=== PATIENT | male | born 1980 | race American Indian/Alaskan Native ===

== ENCOUNTER 2019-07-27 01:04 | Emergency (ER) | payer SELFPAY ==
[2019-07-27] MEDS ORDERED: BUPIVACAINE/PF (0.5%) 5 MG/1 ML 10 ML VIAL INFILTRATI ONE (01:41)
[2019-07-27] MEDS ORDERED: LIDOCAINE-MPF (1%) 10 MG/1 ML VIAL 5 ML INFILTRATI ONE (01:41)
[2019-07-27] MEDS ORDERED: HYDROcodone/ACETAMINOPHEN 7.5-325MG TAB PO ONE (01:41)
--- NOTE | 2019-07-27 02:06 | Emergency Department Report ---
- General Chief Complaint: Wound/Laceration Stated Complaint: LAC TO RIGHT HAND Time Seen by Provider: 07/27/19 01:32 Source: patient Mode of arrival: Ambulatory Limitations: No Limitations - History of Present Illness Initial Comments: Patient is a 39-year-old male presents emergency room complaints of a laceration to the right middle finger that occurred around 12 PM today. He states that he accidentally broke a picture frame and got cut with glass when the frame was falling down. He is able to move the fingers. He denies any numbness or weakness. He is unsure of his last tetanus immunization. He has a past medical history of asthma and hypertension. He denies any allergies to medications. - Related Data Home Medications Medication Instructions Recorded Confirmed Last Taken ALBUTEROL NEB's [Proventil 0.083%] 2.5 mg IH TID PRN 11/01/13 11/01/13 11/01/13 20:00 Albuterol Sulfate [Ventolin HFA] 2 puff IH Q4H PRN 11/01/13 11/01/13 11/01/13 20:00 Allergies Allergy/AdvReac Type Severity Reaction Status Date / Time No Known Allergies Allergy Verified 11/01/13 21:04 ED Review of Systems ROS: Stated complaint: LAC TO RIGHT HAND Other details as noted in HPI Comment: All other systems reviewed and negative ED Past Medical Hx - Past Medical History Hx Hypertension: Yes Hx Asthma: Yes - Surgical History Additional Surgical History: hemorrhoidectomy - Social History Smoking Status: Never Smoker Substance Use Type: Alcohol, Marijuana - Medications Home Medications: Home Medications Medication Instructions Recorded Confirmed Last Taken Type ALBUTEROL NEB's [Proventil 0.083%] 2.5 mg IH TID PRN 11/01/13 11/01/13 11/01/13 20:00 History Albuterol Sulfate [Ventolin HFA] 2 puff IH Q4H PRN 11/01/13 11/01/13 11/01/13 20:00 History ED Physical Exam - General Limitations: No Limitations General appearance: alert, in no apparent distress - Head Head exam: Present: atraumatic, normocephalic - Eye Eye exam: Present: normal appearance - ENT ENT exam: Present: mucous membranes moist - Extremities Exam Extremities exam: Present: other (3 cm irregularly shaped laceration present to the right middle finger on the palmar surface, no active bleeding, no foreign body visualized or palpable, no tendon/muscle involvement, FROM of the right fingers and hand, no deformity, neurovascularly intact) - Neurological Exam Neurological exam: Present: alert, oriented X3 - Psychiatric Psychiatric exam: Present: normal affect, normal mood - Skin Skin exam: Present: warm, dry ED Course Vital Signs 07/27/19 07/27/19 07/27/19 01:10 01:51 02:51 Temperature 97.8 F Pulse Rate 65 Respiratory 18 16 18 Rate Blood Pressure 177/93 Blood Pressure [Left] O2 Sat by Pulse 98 Oximetry 07/27/19 03:05 Temperature Pulse Rate 63 Respiratory 18 Rate Blood Pressure Blood Pressure 136/99 [Left] O2 Sat by Pulse 99 Oximetry - Laceration /Wound Repair Right Palm Finger Wound Location: upper extremity (palmar surface of the right middle finger) Wound Length (cm): 3 Wound's Depth, Shape: superficial Wound Explored: clean Irrigated w/ Saline (ccs): 500 Betadine Prep?: Yes Anesthesia: 1% Lidocaine Volume Anesthetic (ccs): 8 (1% lidocaine and 0.5% bupvicaine (50/50 mix)) Wound Debrided: moderate Wound Repaired With: sutures Suture Size/Type: 4:0 Number of Sutures: 4 Layer Closure?: No Sterile Dressing Applied?: Yes Progress: Wound irrigated with saline and thoroughly scrubbed with Betadine, no foreign body visualized, no muscle tendon involvement, digital block performed with 8 cc of 1% lidocaine and 0.5% bupivacaine, 4 cc of 1% lidocaine without epinephrine and 4 cc of 0.5% bupivacaine used for total of 8 cc, Betadine prep again, sterile drapes applied, sterile gloves worn, 4 sutures placed with 4-0 Prolene, patient tolerated well, bleeding controlled, no complications, sterile dressing applied ED Medical Decision Making - Medical Decision Making Patient is a 39-year-old male presents emergency room complaints of a laceration to the right middle finger that occurred around 12 PM today. He states that he accidentally broke a picture frame and got cut with glass when the frame was falling down. He is able to move the fingers. He denies any numbness or weakness. He is unsure of his last tetanus immunization. He has a past medical history of asthma and hypertension. He denies any allergies to medications. Initial vitals with elevated blood pressure which improved upon repeat. On exam: 3 cm irregularly shaped laceration present to the right middle finger on the palmar surface, no active bleeding, no foreign body visualized or palpable, no tendon/muscle involvement, FROM of the right fingers and hand, no deformity, neurovascularly intact. Patient given pain medication as he did not drive to the emergency department. Wound irrigated with saline and thoroughly scrubbed with Betadine and repaired per procedure note. Patient given tetanus immunization. advised pt Please keep area clean, dry, covered. May wash with soap and water and immediately dry. No hot tub, no pool, no soaking in water. Sutures need to be removed in 7 to 10 days. Follow-up with a primary care doctor for reexamination. Return to the emergency room for any new or worsening symptoms. Critical care attestation.: If time is entered above; I have spent that time in minutes in the direct care of this critically ill patient, excluding procedure time. ED Disposition Clinical Impression: Laceration of right middle finger Qualifiers: Encounter type: initial encounter Damage to nail status: without damage Foreign body presence: without foreign body Qualified Code(s): S61.212A - Laceration without foreign body of right middle finger without damage to nail, initial encounter Disposition: DC- TO HOME OR SELFCARE Is pt being admited?: No Does the pt Need Aspirin: No Condition: Stable Instructions: Suture Care (ED), Laceration (ED) Additional Instructions: Please keep area clean, dry, covered. May wash with soap and water and immediately dry. No hot tub, no pool, no soaking in water. Sutures need to be removed in 7 to 10 days. Follow-up with a primary care doctor for reexamination. Return to the emergency room for any new or worsening symptoms. Referrals: ELVIRA LEE MD [Primary Care Provider] - 3-5 Days Time of Disposition: 02:50 Print Language: CZECH
[2019-07-27] MEDS ORDERED: NEOMY 3.5 MG/BACIT 400 UNITS/POLY B 5000 UNITS/GM OINT PACKET TP ONE (02:20)
[2019-07-27] MEDS ORDERED: HYDROGEN PEROXIDE 118 ML SOLUTION ONE (02:20)
[2019-07-27] MEDS ORDERED: TETANUS,DIPH,PERTUSS(ACELL) VACCINE 0.5 ML SYRINGE IM ONE (02:46)
[2019-07-27 03:08] VITALS: BP 136/99
== END 2019-07-27 03:05 | disposition home or self-care (01) ==
LOC: ED 01:04
PROC: 0HQFXZZ Repair Right Hand Skin, External Approach (ICD-10-PCS; principal; 2019-07-27)
DX: S61.212A Laceration without foreign body of right middle finger without damage to nail, initial encounter (principal); I10 Essential (primary) hypertension; J45.909 Unspecified asthma, uncomplicated; F12.10 Cannabis abuse, uncomplicated; Z79.899 Other long term (current) drug therapy; W25.XXXA Contact with sharp glass, initial encounter; Y93.89 Activity, other specified; Y92.89 Other specified places as the place of occurrence of the external cause; Y99.8 Other external cause status
CPT/HCPCS: 90471; 90715; 99282; A6250

== ENCOUNTER 2019-08-11 02:53 | Emergency (ER) | payer SELFPAY ==
--- NOTE | 2019-08-11 05:00 | Emergency Department Report ---
ED General Adult HPI - General Chief complaint: Laceration/Recheck/Suture Stated complaint: REMOVAL STITCHES Source: patient Mode of arrival: Ambulatory Limitations: No Limitations - History of Present Illness Initial comments: Patient is a 39-year-old -[place] male with no past medical history who presents to the ED for suture removal from recently sutured distal right middle finger laceration after a piece of glass cut his right middle finger 2 weeks ago. Patient states that he was initially evaluated and treated in this ED and had sutures placed to close the wound. Patient states that he has been taking [id number] medications as needed for pain. Patient complains of worsening distal right middle finger wound from the laceration and states that the wound has partially opened. Patient denies numbness and tingling or weakness of right hand, nausea, vomiting, fever, chills, dizziness or headache. -: Sudden, week(s) (2) Location: upper extremity (Distal right middle finger) Radiation: non-radiation Severity scale (0 -10): 5 Quality: aching, sharp Consistency: constant Improves with: none Worsens with: none Associated Symptoms: denies other symptoms. denies: confusion, chest pain, cough, diaphoresis, fever/chills, headaches, loss of appetite, malaise, nausea/vomiting, rash, seizure, shortness of breath, syncope, weakness Treatments Prior to Arrival: NSAID - Related Data Home Medications Medication Instructions Recorded Confirmed Last Taken ALBUTEROL NEB's [Proventil 0.083%] 2.5 mg IH TID PRN 11/01/13 11/01/13 11/01/13 20:00 Albuterol Sulfate [Ventolin HFA] 2 puff IH Q4H PRN 11/01/13 11/01/13 11/01/13 20:00 Previous Rx's Medication Instructions Recorded Last Taken Type Ibuprofen [Motrin] 600 mg PO Q8H PRN #20 tablet 08/11/19 Unknown Rx cephALEXin [Keflex] 500 mg PO Q8HR #30 cap 08/11/19 Unknown Rx Allergies Allergy/AdvReac Type Severity Reaction Status Date / Time No Known Allergies Allergy Verified 11/01/13 21:04 ED Review of Systems ROS: Stated complaint: REMOVAL STITCHES Other details as noted in HPI Constitutional: denies: chills, fever Eyes: denies: eye pain, eye discharge, vision change ENT: denies: ear pain, throat pain Respiratory: denies: cough, shortness of breath, wheezing Cardiovascular: denies: chest pain, palpitations Endocrine: no symptoms reported Gastrointestinal: denies: abdominal pain, nausea, diarrhea Genitourinary: denies: urgency, dysuria Musculoskeletal: arthralgia (Distal right middle finger pain from a dehisced laceration wound). denies: back pain, joint swelling Skin: other (Dehisced laceration wound on distal right middle finger). denies: rash, lesions Neurological: denies: headache, weakness, paresthesias Psychiatric: denies: anxiety, depression Hematological/Lymphatic: denies: easy bleeding, easy bruising ED Past Medical Hx - Past Medical History Previous Medical History?: Yes Hx Hypertension: Yes Hx Asthma: Yes - Surgical History Past Surgical History?: Yes Additional Surgical History: hemorrhoidectomy - Social History Smoking Status: Never Smoker Substance Use Type: Marijuana - Medications Home Medications: Home Medications Medication Instructions Recorded Confirmed Last Taken Type ALBUTEROL NEB's [Proventil 0.083%] 2.5 mg IH TID PRN 11/01/13 11/01/13 11/01/13 20:00 History Albuterol Sulfate [Ventolin HFA] 2 puff IH Q4H PRN 11/01/13 11/01/13 11/01/13 20:00 History Ibuprofen [Motrin] 600 mg PO Q8H PRN #20 tablet 08/11/19 Unknown Rx cephALEXin [Keflex] 500 mg PO Q8HR #30 cap 08/11/19 Unknown Rx ED Physical Exam - General Limitations: No Limitations General appearance: alert, in no apparent distress - Head Head exam: Present: atraumatic, normocephalic, normal inspection - Eye Eye exam: Present: normal appearance, PERRL, EOMI Pupils: Present: normal accommodation - ENT ENT exam: Present: normal exam, normal orophraynx, mucous membranes moist, TM's normal bilaterally, normal external ear exam - Neck Neck exam: Present: normal inspection, full ROM - Respiratory Respiratory exam: Present: normal lung sounds bilaterally. Absent: respiratory distress, wheezes, rales, rhonchi, chest wall tenderness, accessory muscle use, decreased breath sounds, prolonged expiratory - Cardiovascular Cardiovascular Exam: Present: regular rate, normal rhythm, normal heart sounds. Absent: systolic murmur, diastolic murmur, rubs, gallop - GI/Abdominal GI/Abdominal exam: Present: soft, normal bowel sounds. Absent: distended, tenderness, guarding, hyperactive bowel sounds - Extremities Exam Extremities exam: Present: normal inspection, full ROM, tenderness (Palpable distal right middle finger due to an open wound from her recent laceration repair with sutures in place), normal capillary refill - Back Exam Back exam: Present: normal inspection, full ROM. Absent: tenderness, CVA tenderness (R), muscle spasm, paraspinal tenderness - Neurological Exam Neurological exam: Present: alert, oriented X3, CN II-XII intact, normal gait - Psychiatric Psychiatric exam: Present: normal affect, normal mood - Skin Skin exam: Present: warm, dry, intact, normal color, other (Open laceration wound on distal right middle finger on palmar side with sutures in place and palpable tenderness). Absent: rash ED Course Vital Signs 08/11/19 02:56 Temperature 98.6 F Pulse Rate 80 Respiratory 18 Rate Blood Pressure 142/93 O2 Sat by Pulse 98 Oximetry ED Medical Decision Making - Medical Decision Making This is a 39-year-old -[place] male with no past medical history who presents to the ED for suture removal from recently sutured distal right middle finger laceration after a piece of glass cut his right middle finger 2 weeks ago. Patient states that he was initially evaluated and treated in this ED and had sutures placed to close the wound. Patient states that he has been taking [id number]-okpuixo medications as needed for pain. Patient complains of worsening distal right middle finger wound from the laceration and states that the wound has partially opened. In the ED, patient is alert and oriented x3 and is not in distress. Physical exam reveals palpable tenderness of the distal right middle finger laceration wound. No discharge appreciated on exam. The sutures were removed successfully and the patient was discharged home on prophylactic antibiotics and advised to follow-up with his primary care physician in 7 to 10 days for reevaluation or return to the ED immediately if symptoms get worse. - Differential Diagnosis Infected wound; Laceration; Wound dehiscence Critical care attestation.: If time is entered above; I have spent that time in minutes in the direct care of this critically ill patient, excluding procedure time. ED Disposition Clinical Impression: Encounter for removal of sutures Infected puncture wound of finger Qualifiers: Encounter type: subsequent encounter Qualified Code(s): S61.239D - Puncture wound without foreign body of unspecified finger without damage to nail, subsequent encounter; L08.9 - Local infection of the skin and subcutaneous tissue, unspecified Disposition: DC-01 TO HOME OR SELFCARE Is pt being admited?: No Does the pt Need Aspirin: No Condition: Stable Instructions: Wound Infection (ED), Puncture Wound (ED) Additional Instructions: Take medication with food, drink plenty of fluids and follow-up with your primary care physician in 7 to 10 days for reevaluation. Return to the ED immediately if symptoms get worse. Prescriptions: cephALEXin [Keflex] 500 mg PO Q8HR #30 cap Ibuprofen [Motrin] 600 mg PO Q8H PRN #20 tablet PRN Reason: Pain Referrals: [facility] [Provider Group] - 7-10 days Time of Disposition: 05:04 Print Language: SERBIAN
[2019-08-13 12:23] VITALS: BP 168/92
== END 2019-08-11 05:19 | disposition home or self-care (01) ==
LOC: ED 02:53
DX: S61.232D Puncture wound without foreign body of right middle finger without damage to nail, subsequent encounter (principal); I10 Essential (primary) hypertension; J45.909 Unspecified asthma, uncomplicated; F12.10 Cannabis abuse, uncomplicated; Z48.02 Encounter for removal of sutures; Z90.89 Acquired absence of other organs; Z79.899 Other long term (current) drug therapy; X58.XXXD Exposure to other specified factors, subsequent encounter
CPT/HCPCS: 99282

== ENCOUNTER 2021-01-13 04:43 | Emergency (ER) | payer SELFPAY ==
--- NOTE | 2021-01-13 04:44 | Emergency Department Report ---
ED Male HPI - General Stated complaint: POSSIBLE STD Time Seen by Provider: 01/13/21 04:44 - History of Present Illness Initial comments: Patient presents for possible STD. Patient noticed a lesion on the shaft of his penis over the last day. He tried to rub it off. It started to look a little clear. It was painless. He has had no discharge. He has no testicular pain. There has been no change in urinary habits. He was concern for syphilis. He has had syphilis before. He had what sounds like a primary syphilis. He noticed a rash on his scrotum. He was treated with a single dose of penicillin IM. Patient states that he does have HIV. He is concerned because of his history and came here for evaluation. There has been no fevers or chills. Is no cough or congestion. There is no vomiting or diarrhea. No abdominal pain or back pain. He has had no known exposure. He does state that he is out of his HIV medication and would like a new prescription. He is unaware of his current medication regimen. - Related Data Home Medications Medication Instructions Recorded Confirmed Last Taken ALBUTEROL NEB's [Proventil 0.083%] 2.5 mg IH TID PRN 11/01/13 11/01/13 11/01/13 20:00 Albuterol Sulfate [Ventolin HFA] 2 puff IH Q4H PRN 11/01/13 11/01/13 11/01/13 20:00 Previous Rx's Medication Instructions Recorded Last Taken Type Ibuprofen [Motrin] 600 mg PO Q8H PRN #20 tablet 08/11/19 Unknown Rx Allergies Allergy/AdvReac Type Severity Reaction Status Date / Time No Known Allergies Allergy Verified 11/01/13 21:04 ED Review of Systems ROS: Stated complaint: POSSIBLE STD Other details as noted in HPI Comment: All other systems reviewed and negative Constitutional: denies: fever Eyes: denies: eye pain ENT: denies: throat pain Respiratory: denies: cough Cardiovascular: denies: chest pain Endocrine: denies: unexplained weight loss Gastrointestinal: denies: abdominal pain Genitourinary: as per HPI Musculoskeletal: denies: back pain Skin: as per HPI Hematological/Lymphatic: denies: easy bruising ED Past Medical Hx - Past Medical History Hx Hypertension: Yes Hx Asthma: Yes Hx HIV: Yes - Surgical History Additional Surgical History: hemorrhoidectomy - Social History Smoking Status: Never Smoker Substance Use Type: Alcohol, Marijuana - Medications Home Medications: Home Medications Medication Instructions Recorded Confirmed Last Taken Type ALBUTEROL NEB's [Proventil 0.083%] 2.5 mg IH TID PRN 11/01/13 11/01/13 11/01/13 20:00 History Albuterol Sulfate [Ventolin HFA] 2 puff IH Q4H PRN 11/01/13 11/01/13 11/01/13 20:00 History Ibuprofen [Motrin] 600 mg PO Q8H PRN #20 tablet 08/11/19 Unknown Rx ED Physical Exam - General Limitations: No Limitations, Other (Pulse ox was noted to normal.) General appearance: alert, in no apparent distress - Head Head exam: Present: atraumatic, normocephalic, normal inspection - Eye Eye exam: Present: normal appearance, EOMI. Absent: scleral icterus - ENT ENT exam: Present: normal exam, normal external ear exam - Neck Neck exam: Present: normal inspection. Absent: meningismus - Respiratory Respiratory exam: Present: normal lung sounds bilaterally. Absent: respiratory distress - Cardiovascular Cardiovascular Exam: Present: regular rate, normal rhythm - GI/Abdominal GI/Abdominal exam: Present: soft. Absent: tenderness - exam: Present: other (Small 3 mm circular lesion noted to the dorsum of the shaft of the penis proximally. This is nontender.). Absent: scrotal swelling - Extremities Exam Extremities exam: Present: normal capillary refill - Back Exam Back exam: Absent: CVA tenderness (R), CVA tenderness (L) - Neurological Exam Neurological exam: Present: alert, oriented X3, normal gait. Absent: motor sensory deficit - Psychiatric Psychiatric exam: Present: normal affect, normal mood - Skin Skin exam: Present: warm, dry ED Course - Reevaluation(s) Reevaluation #1: 01/13/21 04:58 Labs were ordered. Patient was treated empirically. Old records reviewed. ED Medical Decision Making - Medical Decision Making Patient presents with a penile rash. Given his HIV history, prior history of syphilis, and lifestyle, we have chosen to empirically treat for syphilis pending his test result. He was given a single dose of penicillin here. We did test for other sexually transmitted infections. These were not treated empirically. We will have him follow-up for further evaluation and test results. He was given a referral physician if he cannot follow with his regular physician. He certainly does not appear to have any evidence of orchitis. There is no penile discharge. He does not appear to be septic or toxic. The rash does not appear to be chancroid in nature. There does not appear to be any pain associate with this. I do not believe this represents herpes. Critical Care Time: No Critical care attestation.: If time is entered above; I have spent that time in minutes in the direct care of this critically ill patient, excluding procedure time. ED Disposition Clinical Impression: Penile lesion Disposition: HOME / SELF CARE / HOMELESS Is pt being admited?: No Condition: Stable Instructions: Syphilis, Syphilis Test Additional Instructions: Follow-up with your regular physician for test results. Drink plenty of fluids. Return for problems. Continue home medication. Referrals: PRIMARY MD CATHERINE [Referring] - 3-5 Days CHRISTIAN ROMERO MD [Staff Physician] - 3-5 Days
[2021-01-13] MEDS ORDERED: PENICILLIN G BENZATHINE 1.2 MILLION UNIT/2 ML INJ IM ONE (04:54)
[2021-01-13 05:06] VITALS: BP 128/88
== END 2021-01-13 05:52 | disposition home or self-care (01) ==
LOC: ED 04:43
DX: N48.89 Other specified disorders of penis (principal); I10 Essential (primary) hypertension; J45.909 Unspecified asthma, uncomplicated; F12.90 Cannabis use, unspecified, uncomplicated; Z72.89 Other problems related to lifestyle; Z91.010 Allergy to peanuts; Z79.899 Other long term (current) drug therapy
CPT/HCPCS: 96372; 99282; J0561

== ENCOUNTER 2021-07-06 18:02 | Emergency (ER) | payer SELFPAY ==
[2021-07-06] MEDS ORDERED: IPRATROPIUM/ALBUTEROL SULFATE 3 ML AMPUL.NEB IH STA (18:34)
[2021-07-06] MEDS ORDERED: methylPREDNISolone Sod Succinate 125 MG/2 ML INJ IV ONE (18:34)
--- NOTE | 2021-07-06 18:40 | Emergency Department Report ---
ED General Adult HPI - General Chief complaint: Adult Asthma Stated complaint: ASTHMA Time Seen by Provider: 07/06/21 18:29 Source: patient Mode of arrival: Ambulatory Limitations: No Limitations - History of Present Illness Initial comments: Patient presents with complaints of SOB @ rest and on exertion. Denies PND, orthopnea, chest pain, palpitations, diaphoresis, leg swelling, pain in his calves, recent travel, immobilization, surgery, hospitalization, sex HRT use. Reports rhinorrhea, cough x 1 day. Has a hx of asthma Severity scale (0 -10): 0 - Related Data Home Medications Medication Instructions Recorded Confirmed Last Taken ALBUTEROL NEB's [Proventil 0.083%] 2.5 mg IH TID PRN 11/01/13 11/01/13 11/01/13 20:00 Albuterol Sulfate [Ventolin HFA] 2 puff IH Q4H PRN 11/01/13 11/01/13 11/01/13 20:00 Previous Rx's Medication Instructions Recorded Last Taken Type Ibuprofen [Motrin] 600 mg PO Q8H PRN #20 tablet 08/11/19 Unknown Rx ALBUTEROL NEB's [Proventil 0.083% 3 ml IH Q6H PRN 30 Days #120 vial 07/06/21 Unknown Rx NEBS] Albuterol Sulfate [Proventil Hfa] 2 puff IH Q6H PRN 30 Days #1 inh 07/06/21 Unknown Rx predniSONE [Deltasone] 2 tab PO QDAY 5 Days #10 tab 07/06/21 Unknown Rx Allergies Allergy/AdvReac Type Severity Reaction Status Date / Time peanuts AdvReac Rash Uncoded 01/13/21 05:00 ED Review of Systems ROS: Stated complaint: ASTHMA Other details as noted in HPI Comment: All other systems reviewed and negative Constitutional: denies: chills, fever ED Past Medical Hx - Past Medical History Previous Medical History?: Yes Hx Hypertension: Yes Hx Asthma: Yes Hx HIV: Yes Additional medical history: Syphyllis - Surgical History Additional Surgical History: hemorrhoidectomy - Social History Smoking Status: Never Smoker Substance Use Type: Alcohol, Marijuana - Medications Home Medications: Home Medications Medication Instructions Recorded Confirmed Last Taken Type ALBUTEROL NEB's [Proventil 0.083%] 2.5 mg IH TID PRN 11/01/13 11/01/13 11/01/13 20:00 History Albuterol Sulfate [Ventolin HFA] 2 puff IH Q4H PRN 11/01/13 11/01/13 11/01/13 20:00 History Ibuprofen [Motrin] 600 mg PO Q8H PRN #20 tablet 08/11/19 Unknown Rx ALBUTEROL NEB's [Proventil 0.083% 3 ml IH Q6H PRN 30 Days #120 vial 07/06/21 Unknown Rx NEBS] Albuterol Sulfate [Proventil Hfa] 2 puff IH Q6H PRN 30 Days #1 inh 07/06/21 Unknown Rx predniSONE [Deltasone] 2 tab PO QDAY 5 Days #10 tab 07/06/21 Unknown Rx ED Physical Exam - General Limitations: No Limitations General appearance: alert, in no apparent distress - Head Head exam: Present: atraumatic, normocephalic - Eye Eye exam: Present: PERRL, EOMI - ENT ENT exam: Present: mucous membranes moist, other (airway patent) - Neck Neck exam: Present: other (supple; no JVD) - Respiratory Respiratory exam: Present: other (fair air entry, prolonged expiratory phase, diffuse inspiratory and expiratory wheezes, no use of JAYANT) - Cardiovascular Cardiovascular Exam: Present: regular rate. Absent: rubs, gallop - GI/Abdominal GI/Abdominal exam: Present: soft. Absent: distended, tenderness, guarding, rebound - Extremities Exam Extremities exam: Present: other (no lower extremity edema; non tender calves; neg Eddie's sign bilaterally) - Back Exam Back exam: Present: full ROM. Absent: tenderness - Neurological Exam Neurological exam: Present: alert, oriented X3, CN II-XII intact. Absent: motor sensory deficit - Skin Skin exam: Present: warm, normal color ED Course Vital Signs 07/06/21 07/06/21 07/06/21 18:16 18:24 18:30 Temperature 98.1 F Pulse Rate 89 88 86 Pulse Rate [ Bilateral Throughout] Respiratory 14 22 17 Rate Respiratory Rate [Bilateral Throughout] Blood Pressure Blood Pressure 140/83 [Left] O2 Sat by Pulse 100 96 98 Oximetry 07/06/21 07/06/21 07/06/21 18:40 18:41 18:46 Temperature 98.9 F Pulse Rate 76 82 Pulse Rate [ Bilateral Throughout] Respiratory 16 18 24 Rate Respiratory Rate [Bilateral Throughout] Blood Pressure 141/76 Blood Pressure 141/76 [Left] O2 Sat by Pulse 96 99 99 Oximetry 07/06/21 07/06/21 07/06/21 19:00 19:16 19:25 Temperature Pulse Rate 86 88 Pulse Rate [ 83 Bilateral Throughout] Respiratory 21 26 H Rate Respiratory 24 Rate [Bilateral Throughout] Blood Pressure 139/74 151/67 Blood Pressure [Left] O2 Sat by Pulse 98 96 Oximetry 07/06/21 07/06/21 19:29 19:30 Temperature Pulse Rate 88 Pulse Rate [ Bilateral Throughout] Respiratory 31 H Rate Respiratory Rate [Bilateral Throughout] Blood Pressure 136/78 Blood Pressure [Left] O2 Sat by Pulse 97 95 Oximetry ED Medical Decision Making - Lab Data Result diagrams: 07/06/21 19:05 07/06/21 19:05 Laboratory Tests 07/06/21 07/06/21 19:05 19:05 WBC 10.3 RBC 5.36 H Hgb 13.1 Hct 41.1 MCV 77 L MCH 24 L MCHC 32 RDW 20.2 H Plt Count 376 Lymph % (Auto) 10.6 L [place] % (Auto) 7.7 H Eos % (Auto) 5.4 H Baso % (Auto) 0.8 Lymph # (Auto) 1.1 L [place] # (Auto) 0.8 Eos # (Auto) 0.6 H Baso # (Auto) 0.1 Seg Neutrophils % 75.5 H Seg Neutrophils # 7.8 H Sodium 138 Potassium 3.9 Chloride 102.7 Carbon Dioxide 22 Anion Gap 17 BUN 10 Creatinine 1.0 Estimated GFR > 60 BUN/Creatinine Ratio 10 Glucose 135 H Calcium 8.2 L Total Bilirubin 0.30 AST 32 ALT 27 Alkaline Phosphatase 70 Troponin T < 0.010 Total Protein 7.9 Albumin 3.1 L Albumin/Globulin Ratio 0.6 CXR: no acute cardiopulmonary process - EKG Data 07/06/21 20:03 HR 78, SR, nml intervals, isolated minimal (< 1 mm) ST elevation in avL; no significant ST elevations in contiguous leads - Medical Decision Making Diff dz: likely 2/2 asthma exacerbation. Pneumonia, pneumothorax, pulmonary edema ruled out. ACS, PE unlikely. Received solumedrol 125 mg IV x 1, duoneb x 1. On reexamination, lungs with good air entry, nml I:E, CTAB, no use of JAYANT; RR18 Critical care attestation.: If time is entered above; I have spent that time in minutes in the direct care of this critically ill patient, excluding procedure time. ED Disposition Clinical Impression: Asthma exacerbation Disposition: HOME / SELF CARE / HOMELESS Is pt being admited?: No Does the pt Need Aspirin: No Condition: Stable Instructions: Asthma, Adult Prescriptions: predniSONE [Deltasone] 2 tab PO QDAY 5 Days #10 tab ALBUTEROL NEB's [Proventil 0.083% NEBS] 3 ml IH Q6H PRN 30 Days #120 vial PRN Reason: Shortness Of Breath Albuterol Sulfate [Proventil Hfa] 2 puff IH Q6H PRN 30 Days #1 inh PRN Reason: Shortness Of Breath Referrals: PRIMARY CARE, [Primary Care Provider] - 3-5 Days Time of Disposition: 20:10
--- NOTE | 2021-07-06 19:07 | XRay Report ---
CHEST 1 VIEW INDICATION / CLINICAL INFORMATION: SOB. Dyspnea FINDINGS: SUPPORT DEVICES: None. HEART / MEDIASTINUM: No significant abnormality. LUNGS / PLEURA: No significant pulmonary or pleural abnormality. No pneumothorax. ADDITIONAL FINDINGS: No significant additional findings. IMPRESSION: 1. No acute findings. Signer Name: Femi Christopher MD Signed: 07/06/2021 7:02 PM Workstation Name: [id number]
[2021-07-06 19:26] LABS: Basophils # (Auto) 0.1 K/mm3 (0.0-0.1); Basophils % (Auto) 0.8 % (0.0-1.8); Eosinophils # (Auto) 0.6 K/mm3 (0.0-0.4); Eosinophils % (Auto) 5.4 % (0.0-4.3); Hematocrit 41.1 % (35.5-45.6); Hemoglobin 13.1 gm/dl (11.8-15.2); Lymphocytes # (Auto) 1.1 K/mm3 (1.2-5.4); Lymphocytes % (Auto) 10.6 % (13.4-35.0); Mean Corpuscular HGB Conc 32 % (32-34); Mean Corpuscular Volume 77 fl (84-94); Monocytes # (Auto) 0.8 K/mm3 (0.0-0.8); Monocytes % (Auto) 7.7 % (0.0-7.3); Platelet Count 376 K/mm3 (140-440); Red Blood Count 5.36 M/mm3 (3.65-5.03)
[2021-07-06 19:27] LABS: Red Cell Distribution Width 20.2 % (13.2-15.2)
[2021-07-06 19:34] VITALS: BP 136/78
[2021-07-06 19:47] LABS: Alanine Aminotransferase 27 units/L (7-56); Albumin 3.1 g/dL (3.9-5); BUN/Creatinine Ratio 10; Blood Urea Nitrogen 10 mg/dL (9-20); Calcium 8.2 mg/dL (8.4-10.2); Hemolysis Index 7
--- NOTE | 2021-07-08 10:22 | Electrocardiograph Report ---
[facility] Test Date: 2021-07-06 Test Time: 19:39:57 Pat Name: GERBER SORIANO Department: Room: Gender: M [employer]: NURSE : 1980 Requested By: DACIA RODRIGUEZ Order Number: [id number] Reading MD: Ge Norris Measurements Intervals [place] Rate: 81 P: 71 ME: 125 QRS: -30 QRSD: 98 T: 4 QT: 350 QTc: 407 Interpretive Statements Sinus rhythm Left axis deviation ST elev, probable normal early repol pattern No previous ECG available for comparison Electronically Signed On 07-08-2021 10:21:43 EDT by Ge Norris
== END 2021-07-06 20:21 | disposition home or self-care (01) ==
LOC: ED 18:02
DX: J45.901 Unspecified asthma with (acute) exacerbation (principal); I10 Essential (primary) hypertension; Z21 Asymptomatic human immunodeficiency virus [HIV] infection status; Z79.899 Other long term (current) drug therapy; Z98.890 Other specified postprocedural states; Z91.010 Allergy to peanuts
CPT/HCPCS: 36415; 71045; 80053; 84484; 85025; 93005; 94640; 96374; 99284; J2930; 94644